=== PATIENT | female | born 1965 | race Two or more races ===

== ENCOUNTER 2020-02-20 08:51 | Emergency (ER) | payer OTHER ==
[~2020-02-20] VITALS: Ht 167.6 cm; Wt 73.5 kg
[~2020-02-20 08:51] MED LIST: CIPRO500 MG PO; GLIMEPIRIDE1 MG; TUSSIONEX PENNKI5 ML PO
[2020-02-20] MEDS ORDERED: ENALAPRIL MALEA10 MG (09:21)
[2020-02-20] MEDS ORDERED: CIPRO500 MG PO (12:45)
[2020-02-20] MEDS ORDERED: PYRIDIUM200 MG PO (12:47)
== END 2020-02-20 12:54 | disposition home or self-care (01) ==
LOC: ER 08:51
DX: N39.0 Urinary tract infection, site not specified (principal); B95.7 Other staphylococcus as the cause of diseases classified elsewhere; R30.0 Dysuria; R07.0 Pain in throat; Z03.818 Encounter for observation for suspected exposure to other biological agents ruled out

== ENCOUNTER 2021-05-19 17:08 | Emergency (ER) | payer OTHER ==
[~2021-05-19] VITALS: Ht 167.6 cm; Wt 67.6 kg
[~2021-05-19 17:08] MED LIST changes: +ENALAPRIL MALEA10 MG; +PYRIDIUM200 MG PO
[2021-05-19] MEDS ORDERED: METFORMIN HCL1000 M3 PO (17:18)
[2021-05-19] MEDS ORDERED: TRULICITY0.75 MG/0. SQ (17:18)
[2021-05-19] MEDS ORDERED: NORFLEX100MG PO (20:25)
[2021-05-19] MEDS ORDERED: KETO10TA2 PO (20:25)
== END 2021-05-19 20:30 | disposition home or self-care (01) ==
LOC: ER 17:08
DX: T07.XXXA Unspecified multiple injuries, initial encounter (principal); V19.9XXA Pedal cyclist (driver) (passenger) injured in unspecified traffic accident, initial encounter; Y92.488 Other paved roadways as the place of occurrence of the external cause

== ENCOUNTER 2023-11-23 06:53 | Day surgery (SDC) | payer OTHER ==
[2023-11-17 10:04] LABS: URINE APPEARANCE Clear; URINE BILIRRUBIN Negative (NEGATIVE); URINE BLOOD Negative; URINE COLOR Yellow; URINE KETONE Negative (NEGATIVE); URINE LEUKOCYTE Small; URINE NITRATE Negative; URINE PROTEIN Negative (NEGATIVE); URINE UROBILINOGEN 0.2 E.U./dl
[2023-11-17 10:05] LABS: URINE BACTERIA 5474.6 uL (0.0-1933); URINE EPITHELIAL CELLS 43.7 uL (0.0-38.8); URINE RBC 5.3 uL (0.0-20.8); URINE WBC 99.2 uL (0.0-23.2)
[2023-11-17 10:06] VITALS: BP 112/77
[2023-11-17 10:06] LABS: URINE CAST 0.15 uL (0.0-1.40); URINE GLUCOSE >=1000 MG/DL (NEGATIVE)
[2023-11-17 10:16] LABS: HEMATOCRIT 39.5 % (36.0-45.00); HEMOGLOBIN 13.5 g/dL (12.0-15.00); MEAN CELL VOLUME 83.2 fL (80.00-100.00); MEAN CORPUSCULAR HEMOGLOBIN 28.3 pg (27.00-32.0); PLATELET COUNT 180 K/uL (150-450); RED BLOOD COUNT 4.75 M/uL (4.00-6.00); RED CELL DISTRIBUTION WIDTH 15.4 % (11.5-14.5)
[2023-11-17 10:33] LABS: PARTIAL THROMBOPLASTIN TIME 29.9 SECONDS (22.0-34.0); PROTHROMBIN TIME 10.9 SECONDS (9.0-11.5)
[2023-11-17 10:41] LABS: ALBUMIN 4.1 gm/dL (3.4-5.0); BILIRUBIN TOTAL 0.4 mg/dL (0.3-1.2); CALCIUM 9.9 mg/dL (8.5-10.1); CREATININE SERUM 0.55 mg/dL (0.55-1.02); GFR 113.13; GLOBULINA 3.5 G/DL (2.4-3.5); TOTAL PROTEIN 7.6 gm/dL (6.4-8.2)
[~2023-11-23] VITALS: Ht 167.6 cm; Wt 71.7 kg
[~2023-11-23 06:53] MED LIST changes: +ETODOLAC500 M1 PO; +FARXIGA5 MG PO; +KETO10TA2 PO; +METFORMIN HCL1000 M3 PO; +MIRCERA50 MCG/0.3 IJ; +NORFLEX100MG PO; +TRULICITY0.75 MG/0. SQ
[2023-11-23] MEDS ORDERED: CEFAZOLIN SODIUM 1,000 MG VIAL ONE (12:54)
[2023-11-23] MEDS ORDERED: BUPIVACAINE HCL/MPF 0.5% 30ML VIAL ONE (13:21)
== END 2023-11-23 16:25 | disposition home or self-care (01) ==
LOC: CIR.AMB 06:53
PROVIDERS: ATTEND Orthopaedic Surgery Hand Surgery
DX: G56.02 Carpal tunnel syndrome, left upper limb (principal)